=== PATIENT | female | born 1950 | race Caucasian/White ===

== ENCOUNTER → 2024-09-08 | Outpatient (CLI) | payer MEDICARE, SELFPAY ==
--- NOTE | 2024-09-08 09:15 | XR_ITS ---
Examination: Screening digital mammography, bilateral Computer aided detection 3-D breast Tomosynthesis, bilateral Date and time of exam: September 08, 2024 0833 hours Compared to mammograms dating to August 30, 2008 Indication: Screening Technique: Nonmagnified MLO, CC views of the breasts to been obtained, reconstructed from 3-D Tomosynthesis images. R2 computer aided detection program utilized for evaluation of suspicious masses and/or abnormal calcifications. 3-D Tomosynthesis images obtained. Findings: The breasts are heterogeneously dense, which may obscure small masses Benign calcifications No suspicious masses Impression: BI-RADS category II: Benign Findings. Recommend 1 year follow-up mammogram.
[2024-09-08 09:59] LABS: Cardiac Risk Estimate 3.3 RATIO (3.7-5.6); Cholesterol 221 mg/dL (132-200); HDL Cholesterol 66 mg/dL (40-60); LDL Cholesterol,Calculated 135 mg/dL (0-130); Triglycerides 100 mg/dL (30-150)
[2024-09-08 10:15] LABS: Glucose Estimated Average 103 mg/dL (80-131); Hemoglobin A1C 5.2 % Hgb (4.8-6.0)
== END | disposition home or self-care (01) ==
LOC: CDIM 08:17 → COPL 08:39
PROVIDERS: Referring Provider Internal Medicine; Visit Provider Radiology Diagnostic Radiology
DX: Z12.39 Encounter for other screening for malignant neoplasm of breast (principal); R92.323 Mammographic fibroglandular density, bilateral breasts; I10 Essential (primary) hypertension; E78.5 Hyperlipidemia, unspecified
CPT/HCPCS: 36415; 77063; 77067; 80061; 83036

== ENCOUNTER → 2024-09-23 | Outpatient (CLI) | payer MEDICARE, SELFPAY ==
[2024-09-23 09:31] LABS: OBS Card Expiration Date 2026-09; OBS Card Lot # 23001; OBS Performed By LAB; OBS QC OK? Yes
[2024-09-23 12:31] LABS: OBS Developer Lot # 23003; Occult Blood, Stool Negative (Negative); Occult Blood, Stool #2 Negative (Negative); Occult Blood, Stool #3 Negative (Negative)
== END | disposition home or self-care (01) ==
LOC: SLDO 09:26
PROVIDERS: PCP Internal Medicine; Referring Provider Internal Medicine; Visit Provider Internal Medicine
DX: Z12.11 Encounter for screening for malignant neoplasm of colon (principal)
CPT/HCPCS: 82270

== ENCOUNTER 2025-03-24 12:28 | Emergency (ER) | payer MEDICARE, SELFPAY ==
[2025-03-24 12:52] VITALS: BP 145/67; PULSE 57; RESP 18; TEMP 36.5; O2SAT 97
[2025-03-24 13:20] VITALS: PULSE 64; RESP 20; O2SAT 98
--- NOTE | 2025-03-24 13:33 | XR_ITS ---
Examination: CT lumbar spine, without contrast. 2-D sagittal reconstructions. 2-D coronal reconstructions. 3-D reconstructions. Date and time of exam:March 24, 2025 1348 hours INDICATIONS: Patient fell today with injury to lower back, lower back pain CTDI: vol (mGy):15 DLP: (mGycm):472 Technique: Multiple 1.25 mm axial sections of the lumbar spine without intravenous contrast have been obtained. 2-D sagittal and coronal reconstructions have been obtained. 3-D reconstructions have been obtained. Low dose protocols were performed. One or more of the following dose reduction techniques were used; automated exposure control, adjustment of the mA and/or KV according to patient size, use of iterative reconstruction technique. Findings: Adequate alignment lumbar vertebral bodies No lumbar vertebral body compression fracture Advanced disc narrowing L4-L5 No spondylolisthesis Lumbar pedicles laminated transverse and posterior spinous processes intact L5-S1 3 mm central lumbar disc bulge L4-L5 5 mm partially extruded central lumbar disc bulge More cephalad levels unremarkable IMPRESSION: No acute lumbar fracture Advanced degenerative disc disease L4-L5 L5-S1 3 mm central lumbar disc bulge L4-L5 5 mm partially extruded central lumbar disc bulge
--- NOTE | 2025-03-24 13:33 | XR_ITS ---
Examination: Bilateral hips, AP pelvis, 5 views Technique: AP, lateral views both hips, AP pelvis, 5 views Exam date and time: March 24, 2025 1409 hours INDICATIONS: Patient fell today with injury to both hips, bilateral hip pain. FINDINGS: No right or left hip fracture or hip dislocation Bones of the pelvis intact IMPRESSION: No acute hip or pelvic fracture If pain persists, recommend 1-2 day follow-up AP pelvis
--- NOTE | 2025-03-24 13:33 | XR_ITS ---
Examination: CT brain head without contrast. 2-D sagittal coronal reconstructions Date and time of exam:March 24, 2025 1346 hours INDICATIONS: Frequent falls today with injury to head, head pain CTDI: vol (mGy):28.1 DLP: (mGycm):1039 Technique: Multiple CT axial sections of the brain have been obtained, 5 mm slice thickness. Contrast has not been administered. 2-D sagittal, coronal reconstructions have been obtained Low dose protocols were performed. One or more of the following dose reduction techniques were used; automated exposure control, adjustment of the mA and/or KV according to patient size, use of iterative reconstruction technique. Findings: Mild ventricular enlargement. Intra-axial or extra-axial hemorrhage density is not seen. No mass effect or midline shift Basal cisterns are not remarkable. Fourth ventricle is midline. Cranial vault intact. Impression: Negative for acute hemorrhage, mass effect or midline shift
--- NOTE | 2025-03-24 13:33 | PD.EDBACK ---
ED Back Injury Pain RME/HPI General Chief Complaint: Back Pain/Injury Stated Complaint: BACK AND KNEE PAIN Time Seen by Provider: 03/24/25 13:26 Arrival date/time: 03/24/25 12:28 Limitations: no limitations RME / HPI RME / HPI Narrative: 74-year-old patient with Alzheimer's brought in by concerned with back pain. States for 2 days she has been complaining of back pain. However patient currently sitting in a leg folded position. And lifting legs above her head. States usually she can do that but sometimes she has back pain. Has had repeated falls and has been does not know if this is intentional or from decreased strength in legs. No loss of bowel or bladder control. No fever. No IV drug use. Also complaint right knee pain but states she can put her legs to her chest so probably not concerning. Related Data Home Medications ?Medication ?Instructions ?Recorded ?Confirmed amlodipine 5 mg tablet 5 mg PO DAILY 04/15/18 04/15/18 atorvastatin 20 mg tablet (Lipitor) 20 mg PO HS 04/15/18 04/15/18 benazepril 40 mg tablet 40 mg PO QDAY 04/15/18 04/15/18 cholecalciferol (vitamin D3) 50 2,000 unit PO QDAY 04/15/18 04/15/18 mcg (2,000 unit) capsule (Vitamin D3) donepezil 5 mg tablet 5 mg PO QDAY 04/15/18 04/15/18 sertraline 50 mg tablet 50 mg PO QDAY 04/15/18 04/15/18 Previous Rx's ?Medication ?Instructions ?Recorded meloxicam 7.5 mg tablet 7.5 mg PO QDAY PRN pain #30 tabs 03/24/25 Allergies Allergy/AdvReac Type Severity Reaction Status Date / Time camphor Allergy Redness of Verified 04/15/18 06:37 Skin Review of Systems Review of Systems Systems Reviewed: All systems reviewed, normal except as documented Constitutional Constitutional: Denies fever(s) Musculoskeletal Musculoskeletal: Reports as per HPI Neurologic Neurologic: Reports as per HPI and Reports other (Patient is unreliable historian due to Alzheimer's) ED Exam General Limitations: Present no limitations General appearance: Present alert and in no apparent distress Head Head exam: Present atraumatic Eye Eye exam: Present normal appearance, PERRL and EOMI ENT ENT exam: Present normal exam, normal oropharynx and mucous membranes moist Neck Neck exam: Present normal inspection, full ROM and trachea midline Chest Chest inspection: Present normal inspection and symmetric chest wall rise Respiratory Respiratory exam: Present normal lung sounds bilaterally Cardiovascular Cardiovascular exam: Present regular rate, normal rhythm and normal heart sounds Abdominal Exam Abdominal exam: Present soft and normal bowel sounds Extremities Exam Extremities exam: Present normal inspection and full ROM Back Exam Back exam: Present normal inspection, full ROM and tenderness (Some TTP to lumbar area however able to fold her legs to her chest) Neurological Exam Neurological exam: Present alert and other (Not alert to date or purpose only to her name) Psychiatric Psychiatric exam: Present normal affect and other (Repetitive speech pattern) Skin Skin exam: Present warm, dry, intact and normal color Course Quality Measures none Orders Category Date Time Status In and Out Catheter X1 Care 03/24/25 16:[address] head/brain wo con Stat Exams 03/24/25 13:[address] lumbar spine wo con Stat Exams 03/24/25 13:33 Completed XR hip BI w pelvis 2V Stat Exams 03/24/25 13:33 Completed CBC Stat Lab 03/24/25 14:03 Completed CMP [Comprehensive Metabolic Panel] Stat Lab 03/24/25 14:03 Completed Drug Screen,Urine Stat Lab 03/24/25 16:33 Completed Lipase Stat Lab 03/24/25 14:03 Completed UA [Urinalysis] Stat Lab 03/24/25 16:33 Completed Ketorolac Inj [Toradol Inj] Med 03/24/25 17:25 Discontinued 30 mg IM X1 ONE Vital Signs Vital signs: Vital Signs Temperature 97.7 F 03/24/25 12:52 Pulse Rate 57 L 03/24/25 12:52 Respiratory Rate 18 03/24/25 12:52 Blood Pressure 145/67 H 03/24/25 12:52 Pulse Oximetry (%) 97 03/24/25 12:52 Oxygen Delivery Method Room Air 03/24/25 12:52 Back Pain / Injury MDM Narrative MDM Narrative:: History of dementia workup essentially negative gave copies of imaging to patient advise follow-up with PCP return to ER if symptoms worsen Patient data External records reviewed:: [facility] previous records Clinical information provided by:: patient and family Social determinants that could affect healthcare access:: mental health (Patient with dementia history is not reliable) Patient has the following chronic illnesses:: Dementia Chronic back pain How is presenting disease/condition affected by chronic disease/condition?: exacerbated by Evaluation data The following diagnostics were reviewed and interpreted by me:: lab results and radiology exam(s) Lab and/or radiology exams considered but not ordered:: MRI of spine was considered however unlikely to be beneficial in today's treatment plan Interpretation Summary: CBC, CMP, UA CT of head within normal limits; CT of spine did show disc herniation x-ray of hips within normal limits Medications / Prescriptions Medications or Prescriptions considered but not ordered:: Narcotics were considered however given confusion avoided it rather went with NSAID Medication administrations:: Medication Administration History Discontinued Medications Ketorolac Tromethamine (Ketorolac Inj 60 Mg/2 Ml Vial) 30 mg IM X1 ONE Stop: 03/24/25 17:26 Last Admin: 03/24/25 18:07 Dose: 30 mg Documented By: CHARLOTTE Rx sent for Consultations Consultation(s) initiated? (list below): No Diagnosis Differential diagnosis back pain/injury: lumbar radiculopathy, sciatica, renal colic and pyelonephritis Most likely diagnosis given after review of the tests above:: Acute on chronic back pain Dementia Admission Indicated Admission indicated?: not indicated Admission Request Was there a request for admission?: No Disposition Plan Disposition Plan: Discharge Discharge Attestation Discharge Attestation: The patient and all family members were given an opportunity to ask questions and understood the discharge instructions. Discharge instructions specifically effects, indications for sooner follow up or return to the emergency department, and the expected course of current diagnosis. Patient condition: Stable Discharge Plan Plan Patient Disposition: HOME (Self Care) Discharge Disposition comment: Follow-up with PCP in 2 to 3 days Prescriptions/Referrals Prescriptions/Med Rec: New meloxicam 7.5 mg tablet 7.5 mg PO QDAY PRN (Reason: pain) Qty: 30 0RF No Action atorvastatin [Lipitor] 20 mg Tablet 20 mg PO HS donepezil 5 mg Tablet 5 mg PO QDAY amlodipine 5 mg Tablet 5 mg PO DAILY benazepril 40 mg Tablet 40 mg PO QDAY sertraline 50 mg Tablet 50 mg PO QDAY cholecalciferol (vitamin D3) [Vitamin D3] 2,000 unit Capsule 2,000 unit PO QDAY Referrals: Valentino Morse MD [Primary Care Provider] - In 1 week Problem List Clinical Impression: Strain of lumbar region, Herniated lumbar disc without myelopathy, Dementia Patient/Caregiver Discharge Instructions Education Materials: Back Safety: Standing, ED CAREGIVER SUPPORT for DEMENTIA Print Language: Malawian Stand Alone Forms: Liza Award Info., Patient Portal Info Letter PA/LAMP CLEANER Supervising Physician PA/LAMP CLEANER Supervising Physician: Dr. Foster
[2025-03-24 14:15] LABS: Basophils # (Auto) 0.1 Thou/mm3 (0.0-0.2); Basophils % (Auto) 0 % (0-2.5); Eosinophils # (Auto) 0.1 Thou/mm3 (0.0-0.5); Eosinophils % (Auto) 1 % (0-10); Hematocrit 40.6 % (36.0-46.0); Hemoglobin 14.4 g/dL (12.0-16.0); Immature Granulocytes % (Auto) 0 % (0-0); Immature Granulocytes Auto 0.03 Thou/mm3 (0.00-0.00); Lymphocytes # (Auto) 3.4 Thou/mm3 (1.0-4.8); Lymphocytes % (Auto) 26 % (10-50); Mean Corpuscular HGB Conc 35.5 g/dl (31.0-37.0); Mean Corpuscular Hemoglobin 29.1 pg (25.0-35.0); Mean Corpuscular Volume 82 fL (80-100); Monocytes % (Auto) 8 % (0-12); Neutrophils # (Auto) 8.4 Thou/mm3 (1.8-7.7); Neutrophils % (Auto) 65 % (37-80); Nucleated Red Blood Cell % 0 /100 WBC (0); Platelet Count 245 Thou/mm3 (140-440); RDW Standard Deviation 38.8 fL (36.4-46.3); Red Blood Count 4.95 Miln/mm3 (4.00-5.20)
[2025-03-24 14:30] VITALS: BP 161/92; PULSE 61; RESP 19; TEMP 36.8; O2SAT 99
[2025-03-24 14:45] LABS: Anion Gap 9 (7-16); Blood Urea Nitrogen 9 mg/dL (9-23); Carbon Dioxide 27.6 mMol/L (20.0-31.0); Chloride 106 mMol/L (98-107); Creatinine (Component) 0.8 mg/dL (0.6-1.3); Potassium 3.8 mMol/L (3.4-5.1); Sodium 143 mMol/L (136-145)
[2025-03-24 14:46] LABS: Alanine Aminotransferase 10 U/L (10-49); Albumin, Serum 4.2 gm/dL (3.4-4.8); Alkaline Phosphatase 63 U/L (46-116); BUN/Creatinine Ratio 11 Ratio (12-20); Bilirubin,Total 0.6 mg/dL (0.3-1.2); Calcium 8.9 mg/dL (8.3-10.6); Calcium (Corrected) 8.9 mg/dL (8.5-10.1); Globulin 2.1 gm/dL (2.3-3.5); Glucose 101 mg/dL (74-106); Lipase 38 U/L (12-53); Osmolality,Calculated 283 (275-295); Total Protein 6.3 gm/dL (5.7-8.2); eGFR > 60 See Note
[2025-03-24 16:38] LABS: Collection Type, Urine Clean Catch; Squamous Epithelial Cell,Urine 0 /hpf (0-5)
[2025-03-24 16:48] VITALS: BP 179/80; PULSE 60; RESP 17; TEMP 36.7; O2SAT 98
[2025-03-24 16:51] LABS: Bacteria,Urine Rare; Bilirubin,Urine Negative (Negative); Blood,Urine 1+ (Negative); Color,Urine Yellow (Lt Yel-Yel); Glucose, Urine Negative (Negative); Ketones,Urine 1+ (Negative); Leukocyte Esterase,Urine Negative (Negative); Nitrite,Urine Positive (Negative); PH,Urine 5.5 (5.0-7.0); Protein,Urine Negative (Neg - Trace); RBC,Urine 2 /hpf (0-3); Specific Gravity,Urine 1.026 (1.001-1.035); Urobilinogen,Urine Negative mg/dL (0.0-1.0); WBC,Urine 6 /hpf (0-5)
[2025-03-24 17:04] LABS: Amphetamine/Methamp Scrn,U Negative (Negative); Barbiturate Screen,Urine Negative (Negative); Benzodiazepines Screen,Urine Negative (Negative); Benzoylecgonine Screen, Ur Negative (Negative); Fentanyl Screen,Urine Negative (Negative); Opiate Screen,Urine Negative (Negative); THC Screen,Urine Positive (Negative)
[2025-03-24 17:12] LABS: Clarity,Urine Hazy (Clear/Hazy)
[2025-03-24 17:59] VITALS: BP 175/77; PULSE 58; RESP 18; TEMP 36.9; O2SAT 98
[2025-03-24] MEDS: KETOROLAC INJ 60 MG/2 ML VIAL 30 MG IM (18:07)
== END 2025-03-24 18:32 | disposition home or self-care (01) ==
PROVIDERS: Physician Assistant; Emergency Provider Family Medicine; PCP Internal Medicine
DX: S39.012A Strain of muscle, fascia and tendon of lower back, initial encounter (principal); M51.26 Other intervertebral disc displacement, lumbar region; G30.9 Alzheimer's disease, unspecified; F02.80 Dementia in other diseases classified elsewhere, unspecified severity, without behavioral disturbance, psychotic disturbance, mood disturbance, and anxiety; S09.90XA Unspecified injury of head, initial encounter; S79.912A Unspecified injury of left hip, initial encounter; S79.911A Unspecified injury of right hip, initial encounter; R29.6 Repeated falls; X58.XXXA Exposure to other specified factors, initial encounter
CPT/HCPCS: 51701; 36415; 70450; 72131; 73521; 80053; 80307; 81001; 83690; 85025; 96372; 99284; J1885

== ENCOUNTER → 2025-03-31 | Outpatient (CLI) | payer MEDICARE, SELFPAY ==
--- NOTE | 2025-03-31 10:01 | XR_ITS ---
Examination: Knee, right , 3 views Technique: Knee AP, lateral, oblique 3 views Date and time of exam: March 31, 2025 1126 hours INDICATIONS: Right knee pain beginning one week ago. FINDINGS: Mild to moderate tricompartment osteoarthritis Prominent osteopenia No fracture IMPRESSION: Mild to moderate tricompartment osteoarthritis
[2025-03-31 12:21] LABS: Basophils # (Auto) 0.1 Thou/mm3 (0.0-0.2); Basophils % (Auto) 0 % (0-2.5); Eosinophils # (Auto) 0.1 Thou/mm3 (0.0-0.5); Eosinophils % (Auto) 1 % (0-10); Hematocrit 43.2 % (36.0-46.0); Hemoglobin 14.6 g/dL (12.0-16.0); Immature Granulocytes % (Auto) 0 % (0-0); Immature Granulocytes Auto 0.03 Thou/mm3 (0.00-0.00); Lymphocytes # (Auto) 3.3 Thou/mm3 (1.0-4.8); Lymphocytes % (Auto) 28 % (10-50); Mean Corpuscular HGB Conc 33.8 g/dl (31.0-37.0); Mean Corpuscular Hemoglobin 29.4 pg (25.0-35.0); Mean Corpuscular Volume 87 fL (80-100); Monocytes % (Auto) 8 % (0-12); Neutrophils # (Auto) 7.4 Thou/mm3 (1.8-7.7); Neutrophils % (Auto) 63 % (37-80); Nucleated Red Blood Cell % 0 /100 WBC (0); Platelet Count 307 Thou/mm3 (140-440); RDW Standard Deviation 40.9 fL (36.4-46.3); Red Blood Count 4.97 Miln/mm3 (4.00-5.20); White Blood Count 11.9 Thou/mm3 (3.6-11.0)
[2025-03-31 12:28] LABS: Glucose Estimated Average 108 mg/dL (80-131); Hemoglobin A1C 5.4 % Hgb (4.8-6.0)
[2025-03-31 12:37] LABS: Alanine Aminotransferase 11 U/L (10-49); Albumin, Serum 4.5 gm/dL (3.4-4.8); Alkaline Phosphatase 69 U/L (46-116); Anion Gap 9 (7-16); Aspartate Amino Transferase 17 U/L (0-34); BUN/Creatinine Ratio 10 Ratio (12-20); Bilirubin,Total 0.6 mg/dL (0.3-1.2); Blood Urea Nitrogen 7 mg/dL (9-23); Calcium 9.1 mg/dL (8.3-10.6); Calcium (Corrected) 9.1 mg/dL (8.5-10.1); Carbon Dioxide 30.8 mMol/L (20.0-31.0); Cardiac Risk Estimate 2.5 RATIO (3.7-5.6); Chloride 103 mMol/L (98-107); Cholesterol 160 mg/dL (132-200); Creatinine (Component) 0.7 mg/dL (0.6-1.3); Globulin 2.3 gm/dL (2.3-3.5); Glucose 113 mg/dL (74-106); HDL Cholesterol 63 mg/dL (40-60); LDL Cholesterol,Calculated 79 mg/dL (0-130); Osmolality,Calculated 283 (275-295); Potassium 3.8 mMol/L (3.4-5.1); Sodium 143 mMol/L (136-145); Total Protein 6.8 gm/dL (5.7-8.2); Triglycerides 91 mg/dL (30-150); eGFR > 60 See Note
== END | disposition home or self-care (01) ==
LOC: CDIM 10:01 → COPL 11:39
PROVIDERS: PCP Internal Medicine; Referring Provider Internal Medicine; Visit Provider Radiology Diagnostic Radiology
DX: M17.11 Unilateral primary osteoarthritis, right knee (principal); E78.2 Mixed hyperlipidemia; I10 Essential (primary) hypertension
CPT/HCPCS: 36415; 73562; 80053; 80061; 82043; 82570; 83036; 85025

== ENCOUNTER → 2025-04-02 | Outpatient (CLI) | payer MEDICARE, SELFPAY ==
[2025-04-02 14:01] LABS: Creatinine MALB Rnd Ur 30 mg/dL (30-125); Microalbumin, Random Urine < 3 mg/L (0-300)
== END | disposition home or self-care (01) ==
PROVIDERS: Referring Provider Internal Medicine; Visit Provider Internal Medicine
DX: E78.2 Mixed hyperlipidemia (principal); I10 Essential (primary) hypertension
CPT/HCPCS: 82043; 82570